=== PATIENT | male | born 1955 | race Caucasian/White ===

== ENCOUNTER 2017-06-19 10:36 | Day surgery (SDC) | payer BC ==
[2017-06-18 14:57] VITALS: BMI 36.6
[2017-06-19] MEDS ORDERED: Midazolam HCl 2 mg/2 ml Vial ONE (11:56)
[2017-06-19 12:35] LABS: Calc. Creatinine Clearance 168 mL/min (70-130); Estimated GFR-MDRD Greater than 90
[2017-06-19] MEDS ORDERED: Gadobenate Dimeglumine 529 MG/1 ML (20ML VIAL) ONE (15:19)
--- NOTE | 2017-06-19 15:20 | MRI ---
MRI LUMBAR SPINE WITH AND WITHOUT CONTRAST: HISTORY: Previous lumbar surgery. Radiculopathy. Right leg and back pain. COMPARISON: None. TECHNIQUE: A lumbar spine MRI is performed with and without intravenous Gadolinium administration. Multisequent ial, multiplanar imaging is performed. FINDINGS: There is appropriate T1 marrow signal intensity of the lumbar vertebrae. Lumbar spine vertebral body height is maintained. No evidence of fracture. No significant STIR hyperintensity to suggest edema or ligamentous injury. There is no abnormal enhancement of the vertebral bodies. There is no abnor mal enhancement within the thecal sac including the cauda equina and conus medullaris. Conus medulla ris terminates at the L1 level. Symmetric signal intensity of the psoas muscles. Appropriate signal intensity of the visualized rebeka d organs. T12-L1: No significant central canal stenosis or foraminal narrowing. L1-L2: Adequate disk hydration. No significant central canal stenosis or foraminal narrowing. L2-L3: Adequate disk hydration. No significant central canal stenosis. Mild ligamentum flavum thic kening and facet hypertrophy. Neural foramina are patent. L3-L4: Adequate disk hydration. No significant loss of disk space height. The generalized disk bul ge, ligamentum flavum thickening, and facet hypertrophy result in mild central canal stenosis. Mild foraminal narrowing. L4-L5: Left laminectomy defect. There is a desiccated disk with moderate loss of disk space height. There is abnormal signal intensity in the right subarticular zone. Evaluation is limited due to lo w signal to noise. There does appear to be some enhancement on the post-contrast fat-saturated image s suggesting scar tissue. Based on the sagittal images, there is evidence of an inferior disk extrus ion into the right subarticular zone. A combination of disk material and scar tissue obscure the tra versing the right L5 nerve root. No significant stenosis of the thecal sac. Left subarticular zone is mildly narrowed due to disk material. Severe right and moderate left foraminal narrowing. L5-S1: Disk desiccation without significant loss of disk space height. There is a central/left suba rticular disk bulge. Disk material abuts but does not completely exclude the traversing left S1 nerv e root. Disk material abuts but does not cause significant mass effect of the traversing right S1 ne rve root. No significant stenosis of the thecal sac. There is bilateral facet hypertrophy. There i s a subtle T2 hyperintensity involving the disk with associated enhancement producing a small annular fissure. Annular fissure is at the level of the disk bulge. Mild right and left foraminal narrowin g. There appears to be a left hemilaminotomy defect. IMPRESSION: 1. Degenerative change of the lumbar spine as above. 2. Narrowing of the right subarticular zone secondary to disk material and scar tissue. There is ma ss effect of the traversing right L5 nerve root. 3. Narrowing of the left subarticular zone at L5-S1 with some mass effect on the traversing left S1 nerve root. POS: LEW
== END 2017-06-19 14:29 | disposition home or self-care (01) ==
LOC: SDC/OP 10:36
PROVIDERS: ATTEND Radiology Diagnostic Radiology
DX: M54.17 Radiculopathy, lumbosacral region (principal); M96.1 Postlaminectomy syndrome, not elsewhere classified; G89.4 Chronic pain syndrome; I10 Essential (primary) hypertension; M19.90 Unspecified osteoarthritis, unspecified site; F17.290 Nicotine dependence, other tobacco product, uncomplicated; Z79.891 Long term (current) use of opiate analgesic; Z79.899 Other long term (current) drug therapy; Z98.890 Other specified postprocedural states
CPT/HCPCS: 36415; 72158; 82565; 93005; 93010; A9579; J2250

== ENCOUNTER 2018-10-11 10:48 | Day surgery (SDC) | payer BC ==
[2018-10-10 17:44] VITALS: BMI 38.3
--- NOTE | 2018-10-11 14:30 | RAD ---
Myelogram of Lumbarspine CLINICAL HISTORY: Pain PROCEDURE: Informed consent was obtained. [employer] imaging was performed. Patient was placed in a prone position and the skin of the low back was prepped and draped in a standard sterile fashion. Topical anesthesia was achieved with buffered 1% lidocaine. 22-gauge spinal needle was then advanced uneventf ully into the thecal sac from a posterior para midline approach at the leftL2-3level. 12 cc of radiopaque contrast was instilled under low pressure into the thecal sac, upon return of clear colorl ess CSF the needle hub. Imaging was stored for documentation. Needle was removed. Patient tolerated the procedure well, without complication evident. Patient was then transferred to CT to undergo subsequent CT myelogram imaging. Reference separate agustin andujar(s) for additional details. FINDINGS: Intraoperative imaging reveals a needle overlying the lumbar spinal canal, with subsequent instillation of radiopaque contrast within the thecal sac. Fluoroscopy data:0.2minutes IMPRESSION: Technically successful myelogram, as above.
--- NOTE | 2018-10-11 14:33 | CT ---
CT lumbar spine with contrast: CT lumbar myelogram: HISTORY: Back Pain COMPARISON: MRI lumbar spine May 2017 is referenced FINDINGS: The conus medullaris is normal in morphology, terminating at the L1 level. Intradiscal space device is present at L4-5. Bilateral pedicle screws with bilateral vertical interconnecting rods at the L4-5 level present. L1-2:Mild disc osteophyte complex with slight effacement of ventral thecal sac and mild narrowing of the bilateral neural foramina. L2-3:Broad-based disc osteophyte complex with moderate to severe central canal stenosis and mild bila teral neural foraminal narrowing L3-4:Broad-based disc osteophyte with moderate to severe central canal stenosis when combined with bi lateral facet joint hypertrophy and redundancy of ligamentum flavum. There is moderate left and mild right neural foraminal stenosis. L4-5:Broad-based osteophyte ridge with mild effacement of ventral thecal sac. There is potential for impingement of the traversing left L5 nerve root. Artifact of the right subarticular zone limits visualization due to streak artifact from hardware. There is moderate narrowing of the right neural f oramen, and mild narrowing of the left neural foramen. L5-S1:Left subarticular osteophyte results in crowding of the traversing left S1 nerve root and sligh t effacement of the left ventral thecal sac. Mild left neural foraminal narrowing. Right neural foramen is patent. 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 Transcribed Date/Time: 10/11/2018 4:50 PM
== END 2018-10-11 17:50 | disposition home or self-care (01) ==
LOC: RAD 10:48 → EDSTATUS 13:00 → RAD 17:50
PROVIDERS: ATTEND Pain Medicine Pain Medicine
PROC: B03BYZZ Magnetic Resonance Imaging (MRI) of Spinal Cord using Other Contrast (ICD-10-PCS; principal; 2018-10-11)
DX: M48.061 Spinal stenosis, lumbar region without neurogenic claudication (principal)
CPT/HCPCS: 62304; 72132